=== PATIENT | female | born 1975 | race Asian ===

== ENCOUNTER 2019-01-16 09:07 | Day surgery (SDC) | payer OTHER ==
[~2019-01-16] VITALS: Ht 30.5 cm; Wt 0.5 kg
== END 2019-01-16 11:30 | disposition home or self-care (01) ==
LOC: OR 09:07
PROC: 3E0R33Z Introduction of Anti-inflammatory into Spinal Canal, Percutaneous Approach (ICD-10-PCS; principal; 2019-01-16)
PROC: B01BYZZ Fluoroscopy of Spinal Cord using Other Contrast (ICD-10-PCS; 2019-01-16)
DX: M51.17 Intervertebral disc disorders with radiculopathy, lumbosacral region (principal)
CPT/HCPCS: J1020

== ENCOUNTER 2019-02-13 08:23 | Day surgery (SDC) | payer OTHER | END 2019-02-13 10:05 | disposition home or self-care (01) | LOC: OR 08:23 | PROC: 3E0R33Z Introduction of Anti-inflammatory into Spinal Canal, Percutaneous Approach (ICD-10-PCS; principal; 2019-02-13) | PROC: B01BYZZ Fluoroscopy of Spinal Cord using Other Contrast (ICD-10-PCS; 2019-02-13) | DX: M51.16 Intervertebral disc disorders with radiculopathy, lumbar region (principal) | CPT/HCPCS: J1020 ==